=== PATIENT | female | born 1960 | race Caucasian/White ===

== ENCOUNTER → 2020-03-08 | Day surgery (SDC) | payer OTHER ==
[~2020-03-08] MED LIST: ADULT LOW DOSE81 MG PO; CITRACAL-VIT D1 EAC1 PO; FLOMAX 0.4 MG0.4 MG PO; IBUPROFEN800 MG PO; LOSARTAN-HCTZ1 EACH PO; PERCOCET 5-3251 EACH PO; TRAZODONE 50MG50 MG PO; ZOFRAN ODT4 MG SL
== END | disposition home or self-care (01) ==
LOC: FAS 07:25
DX: C90.00 Multiple myeloma not having achieved remission (principal); I10 Essential (primary) hypertension; G47.30 Sleep apnea, unspecified; Z79.82 Long term (current) use of aspirin; Z79.899 Other long term (current) drug therapy; Z88.8 Allergy status to other drugs, medicaments and biological substances
CPT/HCPCS: J2704; J7120